=== PATIENT | female | born 1970 | race Two or more races ===

== ENCOUNTER 2016-09-23 21:01 | Emergency (ER) | payer SELFPAY ==
[~2016-09-23] VITALS: Ht 149.9 cm; Wt 59.0 kg
[2016-09-23] MEDS ORDERED: PREDNISONE20 MG ORAL (21:26)
[2016-09-23] MEDS ORDERED: BENADRYL25 MG ORAL (21:26)
--- NOTE | 2016-09-23 21:27 | Emergency Room Report ---
History of Present Illness General Chief Complaint: Skin Rash/Abscess Source: Patient Present Illness HPI Is a 46-year-old female with no serum past medical history. She presents with chief complaint of allergic reaction. Onset was 2 hours ago. She has welts and urticaria. Itchy. No new medication. Last thing she took ammonium 2 days ago. No nausea no vomiting. No respiratory complaint. No tongue edema. No new food or any other new medication, soap, detergent etc. Allergies: Coded Allergies: No Known Allergies (Unverified , 09/23/16) Patient History Past Medical History: see triage record, old chart reviewed Past Surgical History: other Pertinent Family History: none Social History: Denies: smoking Last Menstrual Period: 1 MONTH AGO Now: No Immunizations: other Reviewed Nursing Documentation: PMH: Agreed, PSxH: Agreed Nursing Documentation-PMH Past Medical History: No Stated History Review of Systems Eye: Denies: blurred vision, eye pain ENT: Denies: ear pain, nose congestion, throat swelling Respiratory: Denies: cough, shortness of breath Cardiovascular: Denies: chest pain, palpitations Gastrointestinal: Denies: abdominal pain, diarrhea, nausea, vomiting Musculoskeletal: Denies: back pain, joint pain Skin: Denies: rash Neurological: Denies: headache, numbness Endocrine: Denies: increased thirst, increased urine Hematologic/Lymphatic: Denies: easy bruising All Other Systems: negative except mentioned in HPI Physical Exam Vital Signs Date Time Temp Pulse Resp B/P Pulse Ox O2 Delivery O2 Flow Rate FiO2 09/23/16 21:10 98.1 63 18 145/87 96 Room Air vitals normal Sp02 EP Interpretation: reviewed, normal General Appearance: well appearing, no apparent distress, alert Head: normocephalic, atraumatic Eyes: bilateral eye EOMI, bilateral eye PERRL ENT: hearing grossly normal, normal pharynx Neck: full range of motion, supple, no meningismus Respiratory: chest non-tender, lungs clear, normal breath sounds Cardiovascular #1: regular rate, rhythm, no murmur Gastrointestinal: normal bowel sounds, non tender, no mass, no organomegaly, no bruit, non-distended Musculoskeletal: back normal, gait/station normal, normal range of motion Psychiatric: mood/affect normal Skin: warm/dry, other - Scatter urticaria Medical Decision Making Diagnostic Impression: Primary Impression: Allergic reaction Qualified Codes: T78.40XA - Allergy, unspecified, initial encounter ER Course Patient presents with allergic reaction. Unknown etiology. Unlikely Imodium since his was 48 hours ago. No respiratory distress. No tongue edema. We'll discharge home. Last Vital Signs Date Time Temp Pulse Resp B/P Pulse Ox O2 Delivery O2 Flow Rate FiO2 09/23/16 21:10 98.1 63 18 145/87 96 Room Air Status: improved Disposition: HOME, SELF-CARE Condition: Stable Scripts Prednisone* (PREDNISONE*) 20 Mg Tablet 60 MG ORAL DAILY, #12 TAB Prov: RANDY SUNSHINE M.D. 09/23/16 Diphenhydramine Hcl* (BENADRYL*) 25 Mg Capsule 50 MG ORAL Q6H Y for Itching, #30 CAP Prov: RANDY SUNSHINE M.D. 09/23/16 Additional Instructions: Followup with your DrJael in 7 days. Return if symptom worsen or have any respiratory problem. RANDY SUNSHINE M.D. Sep 23, 2016 21:27
[2016-09-23 21:30] VITALS: BP 135/84
[2016-09-23] MEDS ORDERED: PredniSONE 20mg tab ORAL ONE (21:30)
[2016-09-23 21:35] VITALS: BP 135/84
== END 2016-09-23 21:35 | disposition home or self-care (01) ==
LOC: EMR 21:12
DX: T78.40XA Allergy, unspecified, initial encounter (principal); X58.XXXA Exposure to other specified factors, initial encounter; Y93.9 Activity, unspecified; Y92.9 Unspecified place or not applicable
CPT/HCPCS: 99284